=== PATIENT | male | born 1940 | race Caucasian/White ===

== ENCOUNTER → 2023-08-02 07:19 | Outpatient (REF) | payer OTHER, SELFPAY | LOC: HWRCS 07:19 | PROVIDERS: ATTENDING PHYSICIAN Internal Medicine; FAMILY PHYSICIAN Family Medicine | DX: I25.10 Atherosclerotic heart disease of native coronary artery without angina pectoris (principal); I48.3 Typical atrial flutter; I48.0 Paroxysmal atrial fibrillation; I77.810 Thoracic aortic ectasia | CPT/HCPCS: 93306 ==

== ENCOUNTER → 2024-08-29 07:46 | Outpatient (REF) | payer OTHER, SELFPAY | LOC: RCS 07:46 | PROVIDERS: ATTENDING PHYSICIAN Internal Medicine; FAMILY PHYSICIAN Family Medicine | DX: R06.00 Dyspnea, unspecified (principal); I77.810 Thoracic aortic ectasia; I50.32 Chronic diastolic (congestive) heart failure; I25.10 Atherosclerotic heart disease of native coronary artery without angina pectoris | CPT/HCPCS: 93306 ==

== ENCOUNTER → 2024-08-31 08:02 | Outpatient (REF) | payer OTHER, SELFPAY | LOC: RCS 08:02 | PROVIDERS: ATTENDING PHYSICIAN Internal Medicine; FAMILY PHYSICIAN Family Medicine | DX: R06.00 Dyspnea, unspecified (principal); I25.10 Atherosclerotic heart disease of native coronary artery without angina pectoris; I77.810 Thoracic aortic ectasia; I50.32 Chronic diastolic (congestive) heart failure | CPT/HCPCS: 78452; 93017; A9500; J2785 ==